=== PATIENT | female | born 1985 | race Caucasian/White ===

== ENCOUNTER → 2020-11-15 10:51 | Outpatient (CLI) | payer OTHER, SELFPAY ==
[2020-11-15] MEDS: COVID-19 VACC #1, MRNA(MOD) 100 MCG/0.5 ML VIAL IM (11:02)
== END ==
PROVIDERS: Referring Provider Internal Medicine; Visit Provider Internal Medicine
DX: Z23 Encounter for immunization (principal)
CPT/HCPCS: 0011A; 91301

== ENCOUNTER → 2020-12-13 09:27 | Outpatient (CLI) | payer OTHER, SELFPAY ==
[2020-12-13] MEDS: COVID-19 VACC #2, MRNA(MOD) 100 MCG/0.5 ML VIAL IM (09:32)
== END ==
PROVIDERS: Visit Provider Internal Medicine
DX: Z23 Encounter for immunization (principal)
CPT/HCPCS: 0012A; 91301

== ENCOUNTER → 2021-05-12 11:54 | Outpatient (CLI) | payer OTHER, SELFPAY ==
[2021-05-12 19:11] LABS: Add Manual Diff / Slide Review NO; Basophils Absolute Auto 100 /uL; Basophils Percent Auto 0.9 %; Eosinophils Absolute Auto 100 /uL; Eosinophils Percent Auto 2.5 %; Hematocrit 41.2 %; Hemoglobin 13.7 g/dL; Lymphocytes Absolute Auto 1500 /uL; Lymphocytes Percent Auto 26.1 %; Mean Corpuscular HGB Conc 33.2 %; Mean Corpuscular Hemoglobin 29.6 PG; Mean Corpuscular Volume 89.3 fL; Monocytes Absolute Auto 300 /uL; Monocytes Percent Auto 5.8 %; Neutrophils Absolute Auto 3800 /uL; Neutrophils Percent Auto 64.7 %; Platelet Count 208 X10^3/uL; Red Blood Cell Count 4.61 X10^6/uL; Red Cell Distribution Width 13.3 %; White Blood Cell Count 5.8 X10^3/uL
[2021-05-12 20:36] LABS: Alanine Aminotransferase 13 IU/L; Albumin 4.7 g/dL; Albumin Globulin Ratio 1.3; Alkaline Phosphatase 65 U/L; Aspartate Aminotransferase 27 IU/L; BUN Creatinine Ratio 11.9; Bilirubin Total 0.6 mg/dL; Blood Urea Nitrogen 8 mg/dL; Calcium 9.4 mg/dL; Carbon Dioxide 26 mmol/L; Chloride 104 mmol/L; Estimated Glomerular Filt Rate > 60.0 mL/min; Globulin 3.7 g/dL; Glucose 88 mg/dL; HEMOLYSIS < 15; Sodium 140 mmol/L; Total Protein 8.4 g/dL
[2021-05-13 10:15] LABS: HIV 1 & 2 Ab/Ag 4th Gen Combo NEGATIVE
[2021-05-14 05:30] LABS: RPR Screen Non Reactive (Non Reactive)
[2021-05-14 13:45] LABS: HSV 2 IGG AB 1.24 index (0.00-0.90); HSV1IGG 1.82 index (0.00-0.90)
[2021-05-15 07:36] LABS: Chlamydia trachomatis NAA Negative (Negative); Neisseria gonorrhoeae NAA Negative (Negative)
== END ==
PROVIDERS: PCP Physician Assistant Medical; Visit Provider Physician Assistant
DX: F41.8 Other specified anxiety disorders (principal); Z11.3 Encounter for screening for infections with a predominantly sexual mode of transmission
CPT/HCPCS: 80053; 84443; 85025; 86592; 86695; 86696; 87389; 87491; 87591

== ENCOUNTER → 2022-09-14 09:20 | Outpatient (CLI) | payer SELFPAY ==
[2022-09-14 19:55] LABS: Add Manual Diff / Slide Review NO; Basophils Absolute Auto 100 /uL; Basophils Percent Auto 1.8 %; Eosinophils Absolute Auto 100 /uL; Eosinophils Percent Auto 2.6 %; Hemoglobin 14.8 g/dL; Lymphocytes Absolute Auto 700 /uL; Lymphocytes Percent Auto 16.5 %; Mean Corpuscular HGB Conc 33.6 %; Mean Corpuscular Hemoglobin 29.2 PG; Mean Corpuscular Volume 86.8 fL; Monocytes Absolute Auto 1100 /uL; Monocytes Percent Auto 24.8 %; Neutrophils Absolute Auto 2300 /uL; Neutrophils Percent Auto 54.3 %; Platelet Count 206 X10^3/uL; Red Blood Cell Count 5.08 X10^6/uL; Red Cell Distribution Width 13.1 %; White Blood Cell Count 4.3 X10^3/uL
[2022-09-14 21:54] LABS: Alanine Aminotransferase 19 IU/L; Albumin 4.5 g/dL; Albumin Globulin Ratio 1.3; Alkaline Phosphatase 65 U/L; Aspartate Aminotransferase 24 IU/L; Bilirubin Total 0.5 mg/dL; Blood Urea Nitrogen 7 mg/dL; Calcium 9.2 mg/dL; Carbon Dioxide 20 mmol/L; Chloride 108 mmol/L; Estimated Glomerular Filt Rate 0 mL/min; Globulin 3.6 g/dL; Glucose 92 mg/dL; HEMOLYSIS < 15; Potassium 3.9 mmol/L; Sodium 141 mmol/L; Total Protein 8.1 g/dL
[2022-09-22 23:39] LABS: C difficie Toxins A and B, EIA Negative
== END ==
PROVIDERS: PCP Physician Assistant Medical; Visit Provider Physician Assistant
DX: K52.1 Toxic gastroenteritis and colitis (principal); R10.9 Unspecified abdominal pain; T36.95XA Adverse effect of unspecified systemic antibiotic, initial encounter
CPT/HCPCS: 80053; 85025; 87045; 87324; 87899

== ENCOUNTER 2022-09-15 09:10 | Emergency (ER) | payer SELFPAY ==
[2022-09-15 09:13] VITALS: BP 151/75; PULSE 105; RESP 15; TEMP 36.3; O2SAT 98; BMI 21.9
--- NOTE | 2022-09-15 09:32 | ED_ITS ---
HPI - Nausea/Vomiting/Diarrhea General Chief complaint: Nausea/Vomiting/Diarrhea Stated complaint: loose stool x 1 week, cramping Time Seen by Provider: 09/15/22 09:14 Source: patient Mode of arrival: Ambulatory History of Present Illness HPI Narrative: 36-year-old nonsmoker with report of likely autoimmune disorder presents with significant other and a chief complaint of colicky type generalized abdominal discomfort, weakness, poor appetite and multiple episodes of diarrhea over the past few days. She states that about 2 weeks ago she was started on antibiotics for a dental problem which included amoxicillin and Flagyl. She took about 7 days of the medications before she started developing GI symptoms and then was told she could stop. She is had too many episodes of loose stools account. She feels fatigued and weak and is unable to eat or drink anything as it passes right through her. She is had no fever or chills. She does feel dizzy and lightheaded upon standing. She denies any runny nose, sore throat or cough. Angela kumar has no chest pain or shortness of breath. She states her abdominal pain is generalized in nature and seems to improve after a bowel movement. She was seen and evaluated at an outside clinic yesterday and they did obtain a stool sample for C diff with the results are not back yet. She has been taking Imodium with some relief Related Data Previous Rx's Medication Instructions Recorded prednisone 20 mg tablet 20 mg PO DAILY #3 tabs 07/29/21 sertraline 25 mg tablet See Rx Instructions .Route 02/06/22 .COMPLEX #30 tabs hyoscyamine sulfate 0.125 mg tablet 0.125 mg PO BID-QID PRN dyspepsia 09/15/22 #20 tabs ondansetron 4 mg disintegrating 4 mg PO TID-QID PRN nausea and 09/15/22 tablet vomiting #10 tabs pantoprazole 40 mg tablet,delayed 40 mg PO DAILY #30 tabs 09/15/22 release (Protonix) Allergies Allergy/AdvReac Type Severity Reaction Status Date / Time night shade Allergy Mild unknown Uncoded 04/16/21 14:26 Review of Systems Review of Systems Narrative: GENERAL: See HPI HEENT: See HPI RESPIRATORY: Denies dyspnea, cough, wheezing, hemoptysis, sputum. CARDIOVASCULAR: Denies chest pain, palpitations, orthopnea, edema, GASTROINTESTINAL: See HPI : Denies dysuria, frequency, incontinence, hematuria, urinary retention. MUSCULOSKELETAL: denies weakness, joint pain, or bony pain SKIN: Denies rash, skin lesions, or other NEUROLOGIC: Denies weakness, headache, numbness, change in speech, confusion, seizures, incoordination. PSYCHIATRIC: No concerning psychosocial issues. 12 point review of systems is negative except for those stated above Patient History Medical History Routine screening for STI (sexually transmitted infection) Viral upper respiratory tract infection Surgical History Anesthesia History of surgery (~06/05/20) Family History Father Domestic violence Mental health problem Mother Mental health problem Brother Crohn's disease Mental health problem Brother Mental health problem Grandfather Domestic violence Grandmother Mental health problem Social History Smoking Status: Never smoker Smoking Status: Never smoker alcohol intake frequency: holidays/special occasions only Substance Use Type: does not use Exam Narrative Exam Narrative: GENERAL: [36] year old patient appears stated age. Well-developed patient, in mild distress. Tearful HEAD: Atraumatic. Normocephalic. EYES: Pupils equal round and reactive. Extraocular motions intact. No scleral icterus. No injection or drainage. ENT: Dry mucous membranes Nose without bleeding, purulent drainage. Throat without erythema, tonsillar hypertrophy or exudate. Airway patent. NECK: Trachea midline. Non tender CARDIOVASCULAR: Regular rate and rhythm without murmurs, gallops, or rubs. RESPIRATORY: Clear to auscultation. Breath sounds equal bilaterally. No wheezes, rales, or rhonchi. GASTROINTESTINAL: Abdomen soft, generalized tenderness, nondistended. No rebound, bowel sounds present in all 4 quadrants EXTREMITIES: No edema or joint tenderness. BACK: Nontender without deformity or crepitance. No flank tenderness. NEURO: AOx3. SKIN: No rash or erythema of visible areas Initial Vital Signs Initial Vital Signs: Vital Signs Temperature 97.4 F 09/15/22 09:13 Pulse Rate 105 09/15/22 09:13 Respiratory Rate 15 09/15/22 09:13 Blood Pressure 151/75 09/15/22 09:13 Pulse Oximetry 98 09/15/22 09:13 Oxygen Delivery Method 09/15/22 09:13 Course Orders Ordered: Discontinued Medications Lactated Ringer's (Lactated Ringers) 1,000 mls @ 1,000 mls/hr IV BOLUS ONE Stop: 09/15/22 10:26 Last Infusion: 09/15/22 10:35 Dose: 0 mls/hr Documented By: Admin: 09/15/22 09:43 Dose: 1,000 mls/hr Documented By: GARCÍA Sodium Chloride (Normal Saline 0.9%) 1,000 mls @ 1,000 mls/hr IV BOLUS ONE Stop: 09/15/22 12:33 Last Admin: 09/15/22 11:57 Dose: Not Given Documented By: GARCÍA Lactated Ringer's (Lactated Ringers) 1,000 mls @ 1,000 mls/hr IV BOLUS ONE Stop: 09/15/22 12:56 Last Infusion: 09/15/22 13:06 Dose: 0 mls/hr Documented By: Admin: 09/15/22 12:00 Dose: 1,000 mls/hr Documented By: GARCÍA(2) Pantoprazole Sodium (Pantoprazole 40 Mg Vial) 40 mg IV NOW ONE Stop: 09/15/22 09:28 Last Admin: 09/15/22 09:43 Dose: 40 mg Documented By: GARCÍA Vital Signs Vital signs: Vital Signs - 8 hr 09/15/22 09:13 Temperature 97.4 F Pulse Rate 105 Respiratory Rate 15 Blood Pressure 151/75 Pulse Oximetry 98 Oxygen Delivery Method Room Air MDM - Nausea/Vomiting/Diarrhea Lab Data 09/15/22 10:03 09/15/22 10:03 Labs: Lab Results 09/15/22 09/15/22 Range/Units 10:03 10:03 WBC 4.8 X10^3/uL RBC 4.80 X10^6/uL Hgb 14.0 g/dL Hct 41.3 % MCV 85.9 fL MCH 29.2 PG MCHC 34.0 % RDW 13.0 % Plt Count 197 X10^3/uL Neut % (Auto) 48.8 % Lymph % (Auto) 21.0 % [facility] % (Auto) 26.4 % Eos % (Auto) 2.8 % Baso % (Auto) 1.0 % Neut # (Auto) 2400 /uL Lymph # (Auto) 1000 /uL [facility] # (Auto) 1300 /uL Eos # (Auto) 100 /uL Baso # (Auto) 0 /uL Sodium 138 mmol/L Potassium 3.4 mmol/L Chloride 102 mmol/L Carbon Dioxide 23 mmol/L BUN 4 mg/dL Creatinine 0.72 mg/dL Estimated GFR 0 mL/min BUN/Creatinine Ratio 5.6 Glucose 86 mg/dL Calcium 9.0 mg/dL Total Bilirubin 0.5 mg/dL AST 22 IU/L ALT 17 IU/L Alkaline Phosphatase 60 U/L Total Protein 8.5 g/dL Albumin 4.5 g/dL Globulin 4.0 g/dL Albumin/Globulin Ratio 1.1 Ketones 1.69 mmol/L Urine Dip Bedside Urine Glucose Negative Bedside Urine Bilirubin - Negative Bedside Urine Ketone ++ 40 Urine Specific [place] 1.010 Bedside Urine Occult Blood +++ Bedside Urine pH 6.0 Bedside Urine Protein + 30 Bedside Urine Urobilinogen - Negative Bedside Urine Nitrite - Negative Bedside Urine Leukocytes +/- 15 Esterase MDM Narrative Medical decision making narrative: CC: 36-year-old with abdominal pain nausea vomiting and diarrhea after use of antibiotics Complicating co-morbidities: Recent antibiotic use, autoimmune disorder Data collected from: Patient Medical records reviewed: Differential considered, but not limited to: Antibiotic associated diarrhea, enteritis, Clostridium difficile versus other Exam documented above, pertinent findings include: Slightly tachycardic, tearful, dry mucous membranes, generalized abdominal pain without guarding and bowel sounds are present Lab Test results independently reviewed as above. Pertinent findings: Independently reviewed EKG as above Treatments: Fluids, antiemetics Re-evaluations: Patient feeling significant improvement over the course of the visit Discussion: Patient with crampy, colicky, episodic abdominal pain with nausea and frequent bouts of diarrhea in the aftermath of taking antibiotics. She had taken Imodium prior to her visit and was unable to produce a stool sample for us though there is 1 in the lab from her visit yesterday. Will hold off on any specific treatment until this results out. No significant electrolyte abnormalities, patient feeling much better, stable vital signs, tolerating orals, prescription sent to her pharmacy Disposition: see below, along with detailed discharge instructions that have been reviewed with patient as well as indications for ED re-evaluation and additional outpatient follow up Discharge Plan Departure Patient Disposition: Home Clinical Impression: Abdominal cramps, Diarrhea Instructions: DI for Dehydration -- Adult Activity Restrictions/Additional Instructions: *You have been diagnosed with [abdominal pain, cramping and diarrhea likely due to antibiotic associated diarrhea * As we discussed your history and physical exam as well as labs and imaging are very reassuring. There is no evidence of any severe diagnoses that would require a specific or immediate intervention. *What to do: *Please continue to take your regular medications as directed. [x ] New medication prescriptions sent to your pharmacy: [[facility]] *Please follow up with your primary care provider in 2-3 days, call for an appointment. Let them know you were seen in the Emergency Department and that we ask that you be seen in follow up. We will electronically transmit a record of today's note if your PCP is in our system *Please consider a clear liquid diet for the next 24-48 hours and then slowly advance to regular as tolerated. Also, try to avoid alcohol, nicotine, caffeine, spicy, acidic or fatty foods as this may worsen your symptoms *If you do not have a primary care provider please contact the [facility] Resource line at [phone]. They will ask some questions about your medical history and help get you set up with a doctor in the community. *Return to Emergency Department if you should have any new, worsening or concerning symptoms, such as [fever greater than 101 F, shaking chills, worsening pain, persistent vomiting or other bothersome symptoms] Prescriptions: New pantoprazole [Protonix] 40 mg tablet,delayed release (DR/EC) 40 mg PO DAILY Qty: 30 0RF hyoscyamine sulfate 0.125 mg tablet 0.125 mg PO BID-QID PRN (Reason: dyspepsia) Qty: 20 0RF ondansetron 4 mg tablet,disintegrating 4 mg PO TID-QID PRN (Reason: nausea and vomiting) Qty: 10 0RF No Action sertraline 25 mg tablet See Rx Instructions .ROUTE .COMPLEX Qty: 30 5RF Dose Instruction: TAKE ONE TABLET BY MOUTH EVERY DAY --MUST BE TAPERED TO STOP.--- Rx Instructions: TAKE ONE TABLET BY MOUTH EVERY DAY --MUST BE TAPERED TO STOP.--- prednisone 20 mg tablet 20 mg PO DAILY Qty: 3 0RF Referrals: Palmira Garcia PA-C [Primary Care Provider] - Stand Alone Forms: Patient Portal/API, Work Release Note
[2022-09-15] MEDS: PANTOPRAZOLE 40 MG VIAL IV (09:43)
[2022-09-15] MEDS: LACTATED RINGERS 1,000 ML 1000 ML IV ×2 (09:43→12:00)
[2022-09-15 10:14] LABS: Add Manual Diff / Slide Review NO; Basophils Absolute Auto 0 /uL; Eosinophils Absolute Auto 100 /uL; Eosinophils Percent Auto 2.8 %; Hematocrit 41.3 %; Lymphocytes Absolute Auto 1000 /uL; Mean Corpuscular Hemoglobin 29.2 PG; Mean Corpuscular Volume 85.9 fL; Monocytes Absolute Auto 1300 /uL; Monocytes Percent Auto 26.4 %; Neutrophils Absolute Auto 2400 /uL; Neutrophils Percent Auto 48.8 %; Platelet Count 197 X10^3/uL; White Blood Cell Count 4.8 X10^3/uL
[2022-09-15 10:40] LABS: Alanine Aminotransferase 17 IU/L; Albumin 4.5 g/dL; Albumin Globulin Ratio 1.1; Alkaline Phosphatase 60 U/L; Aspartate Aminotransferase 22 IU/L; BUN Creatinine Ratio 5.6; Bilirubin Total 0.5 mg/dL; Blood Urea Nitrogen 4 mg/dL; Carbon Dioxide 23 mmol/L; Chloride 102 mmol/L; Estimated Glomerular Filt Rate 0 mL/min; Glucose 86 mg/dL; HEMOLYSIS < 15; Potassium 3.4 mmol/L; Sodium 138 mmol/L; Total Protein 8.5 g/dL
[2022-09-15 10:43] LABS: Ketones (Beta-Hydroxybutyrate) 1.69 mmol/L
[2022-09-15 13:23] VITALS: BP 112/73; PULSE 89; O2SAT 99
== END 2022-09-15 14:05 | disposition home or self-care (01) ==
PROVIDERS: Emergency Provider Emergency Medicine; PCP Physician Assistant Medical
DX: R10.84 Generalized abdominal pain (principal); R19.7 Diarrhea, unspecified
CPT/HCPCS: 36415; 80053; 81003; 82009; 85025; 96361; 96374; 99284; C9113